=== PATIENT | male | born 1990 | race Caucasian/White ===

== ENCOUNTER 2021-08-26 10:57 | Outpatient (REF) | payer MEDICAID, SELFPAY ==
--- NOTE | ~2021-08-26 | XR_ITS ---
EXAMINATION: XR KNEE AP STANDING CLINICAL INFORMATION: Bilateral knee pain COMPARISON: None TECHNIQUE: AP bilateral standing view of the knees was obtained. Lateral views of each knee. FINDINGS: Bone mineralization appears normal. No joint space narrowing. No fracture. No joint effusion. XR/XR knee standing BI IMPRESSION: Normal knees.
== END 2021-08-26 10:58 | disposition home or self-care (01) ==
LOC: HO.HMGCX 10:57
PROVIDERS: PCP Internal Medicine; Visit Provider Internal Medicine
DX: M25.562 Pain in left knee (principal); M25.561 Pain in right knee
CPT/HCPCS: 73565

== ENCOUNTER 2022-08-18 06:57 | Outpatient (REF) | payer MEDICAID, SELFPAY ==
[2022-08-18 11:13] LABS: MANUAL DIFF FLAG NO
[2022-08-18 11:32] LABS: Basophils Percent Auto 0.4 % (0-2); Eosinophils Absolute Auto 0.1 X10*3/uL (0.0-0.4); Eosinophils Percent Auto 1.3 % (0-4); Hematocrit 46.7 % (42.0-52.0); Hemoglobin 15.8 g/dl (14.0-18.0); Imm Gran Abs Auto 0.09 X10*3/uL (0.00-0.03); Imm Gran Pct Auto 1.2 % (0.0-0.4); Lymphocytes Absolute Auto 2.3 X10*3/uL (1.2-4.9); Lymphocytes Percent Auto 30.9 % (20-40); Mean Corpuscular HGB Conc 33.8 g/dl (31.0-36.0); Mean Corpuscular Hemoglobin 29.2 pg (27.0-33.0); Mean Corpuscular Volume 86.3 fL (80.0-98.0); Monocytes Absolute Auto 0.6 X10*3/uL (0.1-1.2); Monocytes Percent Auto 7.6 % (2-11); Neutrophils Absolute Auto 4.4 x10*3/uL (2.0-8.3); Neutrophils Percent Auto 58.6 % (45-73); Platelet Count 245 X10*3/uL (160-400); Red Blood Count 5.41 X10*6/uL (4.60-5.80); Red Cell Distribution Width 12.8 % (11.0-16.0); White Blood Count 7.5 X10*3/uL (4.8-10.8)
[2022-08-18 12:51] LABS: Alanine Aminotransferase 22 U/L (0-40); Albumin Level 4.5 g/dL (3.5-5.0); Alkaline Phosphatase 70 U/L (39-117); Anion Gap 13 (12-20); Aspartate Amino Transferase 19 U/L (5-37); Bilirubin Direct 0.2 mg/dL (0.0-0.5); Bilirubin Total 0.6 mg/dL (0.0-1.0); Blood Urea Nitrogen 16 mg/dL (9-16); Carbon Dioxide 25 mmol/L (22-29); Chloride 105 mmol/L (96-108); Cholesterol 149 mg/dL; Estimated Glomerular Filt Rate > 60; Glucose Fasting 96 mg/dL (60-99); HDL Cholesterol 63 mg/dL; LDL Cholesterol Calculated 74 mg/dl; Potassium 4.2 mmol/L (3.3-5.1); Sodium 139 mmol/L (135-145); Triglycerides 64 mg/dL
== END 2022-08-18 06:58 | disposition home or self-care (01) ==
LOC: HO.HMGCLDS 06:57
PROVIDERS: PCP Internal Medicine; Visit Provider Internal Medicine
DX: Z00.00 Encounter for general adult medical examination without abnormal findings (principal); R53.83 Other fatigue; E78.5 Hyperlipidemia, unspecified
CPT/HCPCS: 36415; 80051; 80061; 80076; 82565; 82947; 84520; 85025

== ENCOUNTER 2023-08-17 08:07 | Outpatient (REF) | payer OTHER, SELFPAY ==
[2023-08-17 10:03] LABS: MANUAL DIFF FLAG NO
[2023-08-17 10:14] LABS: Basophils Percent Auto 0.3 % (0-2); Eosinophils Absolute Auto 0.1 X10*3/uL (0.0-0.4); Hematocrit 46.5 % (42.0-52.0); Hemoglobin 15.9 g/dl (14.0-18.0); Imm Gran Abs Auto 0.04 X10*3/uL (0.00-0.03); Imm Gran Pct Auto 0.6 % (0.0-0.4); Lymphocytes Absolute Auto 2.1 X10*3/uL (1.2-4.9); Lymphocytes Percent Auto 30.4 % (20-40); Mean Corpuscular HGB Conc 34.2 g/dl (31.0-36.0); Mean Corpuscular Hemoglobin 29.4 pg (27.0-33.0); Mean Platelet Volume 10.8 fL (9.4-12.4); Monocytes Absolute Auto 0.6 X10*3/uL (0.1-1.2); Monocytes Percent Auto 7.9 % (2-11); Neutrophils Absolute Auto 4.1 x10*3/uL (2.0-8.3); Neutrophils Percent Auto 59.8 % (45-73); Platelet Count 230 X10*3/uL (160-400); Red Blood Count 5.41 X10*6/uL (4.60-5.80); Red Cell Distribution Width 12.6 % (11.0-16.0); White Blood Count 6.9 X10*3/uL (4.8-10.8)
[2023-08-17 11:01] LABS: Alanine Aminotransferase 28 U/L (0-40); Albumin Level 4.8 g/dL (3.5-5.0); Alkaline Phosphatase 65 U/L (39-117); Anion Gap 11 (12-20); Aspartate Amino Transferase 25 U/L (5-37); Blood Urea Nitrogen 18 mg/dL (9-16); Calcium 9.6 mg/dL (8.4-10.2); Carbon Dioxide 27 mmol/L (22-29); Chloride 105 mmol/L (96-108); Cholesterol 143 mg/dL (<200); Estimated Glomerular Filt Rate > 60; Glucose Fasting 98 mg/dL (60-99); HDL Cholesterol 61 mg/dL (>40); LDL Cholesterol Calculated 74 mg/dL (<100); Potassium 4.3 mmol/L (3.3-5.1); Sodium 139 mmol/L (135-145); Total Protein 7.2 g/dL (6.5-8.0); Triglycerides 41 mg/dL (<150)
== END 2023-08-17 08:08 | disposition home or self-care (01) ==
LOC: HO.HMGCLDS 08:07
PROVIDERS: PCP Internal Medicine; Visit Provider Internal Medicine
DX: E78.5 Hyperlipidemia, unspecified (principal); R53.83 Other fatigue
CPT/HCPCS: 36415; 80053; 80061; 85025

== ENCOUNTER 2024-10-22 12:40 | Outpatient (AMB) | payer OTHER, SELFPAY ==
[2024-10-22 12:56] VITALS: BP 130/60; PULSE 74; RESP 18; TEMP 36.5; O2SAT 97; BMI 24.7
--- NOTE | 2024-10-22 12:56 | MHC.PC.OV ---
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 Hand Rounder Required: No Accompanied by: Self / Same As Patient Allergies No Known Allergies Allergy (Verified 10/22/24 13:18) Medication List - Last Reconciled 10/22/24 by CHITO Duffy trazodone 100 mg PO BEDTIME PRN Tobacco use date assessed: 10/22/24 Dental Screening Dental Screen Date: 10/22/24 Did you have a dental visit in the last 12 months?: Yes Did you have a dental problem in the last 6 months where you did not have access to dental care?: No Was dental information given to patient?: Patient has dentist HPI 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 Encouraged to see who takes his insurance and make an appointment. Snellen: Right: Left: Corrected vision: no STI screening: Colonoscopy:n/a Pap Smer:n/a Flu:stop taking this due to side effects, reports that he used to take this prior. COVID:x4 Tdap: 2020 Diet:regular Exercise: Lives an active lifestyle Previous PCP: Last visit: Awhile ago Last PE: Due Specialist: none OBGYN:n/a Past medical history: question cyst on the left side of buttocks, recurring, headaches migraines The patient is a 34-year-old male presenting for a physical examination and management of chronic conditions. 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 He experienced severe symptoms, including daily vomiting, which led to an endoscopy revealing significant esophageal damage. He was treated with proton pump inhibitors, initially Dexilant and later pantoprazole, and made lifestyle modifications such as using a wedge pillow and avoiding trigger foods. Despite improvement, he still experiences morning reflux and is considering a repeat endoscopy. The patient reports a history of anxiety and depression, which were more pronounced during his graduate studies. He is currently not on any antidepressants and feels better than during his academic years. Asthma was more severe during childhood but has become less bothersome with age. He has not used albuterol for a long time and reports no current symptoms. The patient has a history of migraines, which began in childhood. He has tried various interventions, including magnesium and B vitamins, and reports some improvement, though he still experiences debilitating episodes. He is considering trying sumatriptan for acute attacks. The patient describes a recurring issue with a lesion on his left buttock, initially drained and treated with antibiotics in [place]. The lesion occasionally swells and leaks, and he is considering further surgical evaluation. The lesion is suspected to be hidradenitis suppurativa. He reports recent diarrhea following a cold, with episodes occurring two to three times daily, accompanied by bloating. He plans to undergo a GI effects test to further investigate these symptoms. No recent travels or used of antibiotics. 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 1. Little interest or pleasure in doing things: not at all 2. Feeling down, depressed, or hopeless: not at all 3. Trouble falling or staying asleep, or sleeping too much: several days 4. Feeling tired or having little energy: several days 5. Poor appetite or overeating: not at all 6. Feeling bad about yourself - or that you are a failure or have let yourself or your family down: not at all 7. Trouble concentrating on things, such as reading the newspaper or watching television: not at all 8. Moving or speaking so slowly that other people could have noticed. Or the opposite - being so fidgety or restless that you have been moving around a lot more than usual: not at all 9. Thoughts that you would be better off or of hurting yourself in some way: not at all Total score: 2 Depression Screening Interpretation: Negative Depression Screening Done: Yes 19820 - PHQ-9 Billing: Yes Source: Developed by Drs. Holden Huitron, Viv Berry, Дмитрий Samuel and colleagues, with an educational nicole from [employer]. Thrive Questionnaire Date Thrive assessed: 10/22/24 I am a: Patient What is your living situation today?: I have a steady place to live Within the past 12 months, did the food you bought not last and you didn't have the money to get more?: Never true Within the past 12 months, did you worry whether your food would run out before you got money to buy more?: Never true Do you have trouble paying for medicines?: No Do you have trouble getting transportation to medical appointments?: No Do you have trouble paying your heating and electricity bill?: No Do you have trouble taking care of your child, family member or friend?: No Do you have trouble with day-to-day activities such as bathing, preparing meals, shopping, managing finances, etc.?: No Are you currently unemployed and looking for a job?: No Are you interested in more education?: No Please select the resources that you would like help with: None Currently or been in a relationship where the following occur: No concerns reported THRIVE Score: 0 AUDIT C Alcohol Use Questionnaire (AUDIT-C) 1. How often do you have a drink containing alcohol?: Monthly or less 2. How many drinks containing alcohol do you have on a typical day when you are drinking?: 1 or 2 3. How often do you have six or more drinks on one occasion?: Never Total Score: 1 ENID-7 AMB Questionnaire ENID-7 Date ENID - 7 assessed: 10/22/24 Feeling nervous, anxious, or on edge: 0 = Not at all Not being able to stop or control worryin = Not at all Worrying too much about different things: 0 = Not at all Trouble relaxin = Not at all Being so restless that it is hard to sit still: 0 = Not at all Becoming easily annoyed or irritable: 0 = Not at all Feeling afraid as if something awful might happen: 0 = Not at all Total ENID-7 score (0-4 normal; 5-9 mild; 10-14 moderate; 15-21 severe): 0 Source: Developed by Drs. Holden Huitron, Viv Berry, Дмитрий Samuel and colleagues, with an educational nicole from [employer]. ENID-7 Assessment Billing ENID-7 Assessment Tool: ENID-7 Assessment 74566 Review of Systems Const Reports difficulty sleeping and Reports headache(s) (Migraine) Eyes Denies loss of vision ENT Denies vertigo, Denies dizziness, Reports headache(s) (Migraine) and Denies sore throat Card Denies chest pain, Denies leg edema and Denies lightheadedness Resp Denies cough, Denies hemoptysis and Denies wheezing GI Denies abdominal pain, Denies melena, Reports bloating, Denies constipation, Reports heartburn, Reports diarrhea and Denies vomiting Denies dysuria, Denies urinary frequency and Denies urinary urgency Musc Denies arthralgias, Denies joint swelling, Denies numbness and Denies tingling Neuro Denies Abnormal speech present, Denies behavioral changes, Denies vertigo, Denies dizziness, Reports headache(s) (Migraine), Denies loss of vision, Denies memory loss, Denies numbness and Denies tingling Psych Denies anxiety, Denies behavioral changes, Denies depression, Denies memory loss and Denies panic attacks Brad/Lymph Denies easy bleeding and Denies easy bruising Aller/Immun Denies wheezing Physical exam (Primary Care) Vital Signs: Last Vital Signs Temp 97.7 F 10/22/24 12:56 Pulse 74 10/22/24 12:56 Resp 18 10/22/24 12:56 BP 130/60 10/22/24 12:56 Pulse Ox 97 10/22/24 12:56 Oxygen Delivery Method Room Air 10/22/24 12:56 BMI result Body Mass Index 24.7 Tobacco/Smoking Status: Tobacco use Status Tobacco use date assessed 10/22/24 10/22/24 13:13 Patient Tobacco Use Status Never used Tobacco 10/22/24 13:13 e-Cigarette/Vaping Use Never Used 10/22/24 13:13 PHQ-9: PHQ-9 Score PHQ-9: Total score 2 10/22/24 15:22 Depression Screening Interpretation: Negative Thrive Assessment: Date of Thrive Assessment Date Thrive assessed 10/22/24 10/22/24 13:13 Currently or been in a relationship where the following occur: No concerns reported Const General: healthy appearing, no acute distress, alert and awake Nutritional Appearance: well nourished Orientation/consciousness: oriented to person, oriented to place and oriented to time HENMT Ears: TM's normal bilaterally General nose exam: Normal nasal mucous membranes and turbinates present Eyes Conjunctivae: conjunctivae normal Sclerae: sclerae normal Pupils: Equal, round and reactive pupils present Neck Neck: Yes no lymphadenopathy and Yes no JVD Thyroid: Thyroid normal Carotids: no bruits Resp Effort & Inspection: normal respiratory effort and not tachypneic Auscultation: no crackles, no rales, no rhonchi and no wheezes Cardio Rate: regular rate Rhythm: regular rhythm Heart sounds: no murmurs and normal S1 and S2 GI Palpation (GI): Soft to palpation, nontender, no hepatomegaly and no splenomegaly Auscultation: normal bowel sounds Skin General skin exam: dry skin Rashes: rashes noted (left inner buttocks hidradenitis suppurativa) Neuro General: oriented to person, oriented to place and oriented to time Cranial nerves: Yes Equal, round and reactive pupils present Speech: No Abnormal speech present Gait exam (Neuro): Normal gait present Motor exam (neuro): no tremor noted Extrem Right upper extremity: full ROM Left upper extremity: full ROM Right lower extremity: full ROM; no edema Left lower extremity: full ROM; no edema Psych Mental Status: mental status grossly normal Speech and movement: Normal speech and movement present Affect: normal affect Attitude: cooperative Thought process: Normal thought process present Coding Level of Care Code New Pt Prev Care 18-39yr([id number] Diagnoses Annual physical exam Z00.00 Intractable migraine with status migrainosus, unspecified migraine type G43.911 Intractability: intractable Migraine type: unspecified Status migrainosus presence: with status migrainosus Hidradenitis suppurativa L73.2 Insomnia, unspecified type G47.00 Insomnia type: unspecified Diarrhea, unspecified type R19.7 Diarrhea type: unspecified type Gastroesophageal reflux disease with esophagitis, unspecified whether hemorrhage K21.00 Esophagitis bleeding: unspecified whether hemorrhage Additional Codes ENID-7 Assessment Billing - ENID-7 Assessment Tool: ENID-7 Assessment 99677 ([id number]) PHQ-9 - 79371 - PHQ-9 Billing: Yes ([id number]) Time Spent (min) 38 Assessment & Plan Assessment & Plan (1) Annual physical exam: Code(s): Z00.00 - Encounter for general adult medical examination without abnormal findings Category: Medical Plan: The patient is a 34-year-old male here to establish care and to obtain physical exam. Preventative guidelines was reviewed with the patient. Labs were ordered for the patient to complete as soon as possible for further evaluation. (2) Migraines: Code(s): G43.909 - Migraine, unspecified, not intractable, without status migrainosus Category: Medical Qualifiers: Intractability: intractable Migraine type: unspecified Status migrainosus presence: with status migrainosus Qualified Code(s): G43.911 - Migraine, unspecified, intractable, with status migrainosus Plan: Patient reports history of debilitating migraine. Reports photophobia and phonophobia. He has been taking B complex vitamin and magnesium OTC, he has improved this water intake, but continues to have recurrent debilitating headaches. We will order sumatriptan 50 mg p.r.n. for severe headaches and refer the patient to Neurology for further workup. (3) Hidradenitis suppurativa: Code(s): L73.2 - Hidradenitis suppurativa Category: Medical Plan: Patient has a recurrent cyst like lesion to the left buttocks that has been drained and treated with antibiotics in the past. It is raised lump with small amount of purulent drainage. Doxycycline 100 mg b.i.d. times 10 days ordered. Patient was worn about possible diarrhea/GI upset. The patient is already having 1-3 loose stools day depending on meals and will continue to stay hydrated. We will also refer the patient to General surgery for possible I & D. (4) Insomnia: Code(s): G47.00 - Insomnia, unspecified Category: Medical Qualifiers: Insomnia type: unspecified Qualified Code(s): G47.00 - Insomnia, unspecified Plan: Reinforced sleep hygiene Continue trazodone 100 mg b.i.d. p.r.n. (5) Diarrhea: Code(s): R19.7 - Diarrhea, unspecified Category: Medical Qualifiers: Diarrhea type: unspecified type Qualified Code(s): R19.7 - Diarrhea, unspecified Plan: The patient reports that this started a week after having a cold sx and has not stopped He is having 1-3 loose stools a day, he is also complaining off bloatedness an overall stomach discomfort but not pain Transglutaminase, lipase, amylase, stool leukocytes, and ova and parasite ordered to further evaluate Patient also has history of GERD that has started to resurface. We will refer the patient to GI and restart pantoprazole (6) GERD with esophagitis: Code(s): K21.00 - Gastro-esophageal reflux disease with esophagitis, without bleeding Category: Medical Qualifiers: Esophagitis bleeding: unspecified whether hemorrhage Qualified Code(s): K21.00 - Gastro-esophageal reflux disease with esophagitis, without bleeding Plan: History of severe GERD that had resolved with dietary changes and medication. He has not taken any medication in a while. We will restart the patient on pantoprazole 40 mg daily and put and a GI referral for further evaluation Orders: Orders Complete Blood Count Auto Diff Today Z00.00 - Encounter for general adult medical examination without abnormal findings Comprehensive [place]. Panel Fast Today Z00.00 - Encounter for general adult medical examination without abnormal findings Lipid Panel Today Z00.00 - Encounter for general adult medical examination without abnormal findings TSH reflex Free T4 Today Z00.00 - Encounter for general adult medical examination without abnormal findings Vitamin D 25-OH Total Today Z00.00 - Encounter for general adult medical examination without abnormal findings Transglutaminase Ab IgG Today Z00.00 - Encounter for general adult medical examination without abnormal findings Leukocytes Stool Qualitative Today R19.7 - Diarrhea, unspecified UA CC w/rflx Micro + Cult Today Z00.00 - Encounter for general adult medical examination without abnormal findings Ova and Parasite Today R19.7 - Diarrhea, unspecified Referrals Gastroenterology Referral K21.00 - Gastro-esophageal reflux disease with esophagitis, without bleeding, R19.7 - Diarrhea, unspecified Neurology Referral G43.911 - Migraine, unspecified, intractable, with status migrainosus General Surgery Referral L73.2 - Hidradenitis suppurativa Medications: New sumatriptan succinate take 1 tab at onset of headache; if no relief may repeat 1 tab after at least 2 hrs; max = 4 tabs/24 hr PO 14 tabs 3RF doxycycline hyclate 100 mg PO BID 20 caps 0RF 10 days pantoprazole 40 mg PO DAILY 90 tabs 3RF
--- OUTSIDE RECORDS SUMMARY | 2024-10-22 17:23 | XMS_ITS | Encounter Summary ---
Author Organization [facility] Address [address] [place] [address] Phone Care Team Providers Care Painter Name Role Phone Álvaro Reynoso MD Primary Care Provider [phone] Encounter Details Date Type Department Care Team (Late st Contact Info) Description 11/30/2010 Documentation EM Family Medicine [address] [place] [address] Family Medicine, Physician [address] [place], [place] [phone] Social History Tobacco Use Types Packs/Day Years Used Date Smoking Tobacco: Never Assessed Sex and Gender Information Value Date Recorded Sex Assigned at Not on file Legal Sex Male 4:39 PM EDT Gender Identity Not on file Sexual Orientation Not on file documented as of this encounter Plan of Treatment Not on file documented as of this encounter Visit Diagnoses Not on filedocumented in this encounter Care Teams Painter Relationship Specialty Start Date End Date Álvaro Reynoso MD [address] [place] [address] WENDY Juarez [id number] PCP - General 09/17/16 03/24/22 documented as of this encounter
--- OUTSIDE RECORDS SUMMARY | 2024-10-22 17:23 | XMS_ITS | Encounter Summary ---
Author Organization [facility] Address [address] [place] [address] Phone Care Team Providers Care Nurses Director Name Role Phone Álvaro Reynoso MD Primary Care Provider Encounter Details Date Type Department Care Team (Late st Contact Info) Description 12/01/2010 Documentation EM Family Medicine [address] [place] [address] Family Medicine, Physician [address] [place], [place] [phone] Social History Tobacco Use Types Packs/Day Years [...] on filedocumented in this encounter Care Teams Nurses Director Relationship Specialty Start Date End Date Álvaro Reynoso MD [address] [place] [address] WENDY Juarez [address] PCP - General 09/17/16 03/24/22 documented as of this encounter
--- OUTSIDE RECORDS SUMMARY | 2024-10-22 17:23 | XMS_ITS | Encounter Summary ---
Author Organization [facility] Address [address] [place] [address] Phone Care Team Providers Care Creative Consultant Name Role Phone Álvaro Reynoso MD Primary Care Provider [phone] Encounter Details Date Type Department Care Team (Late st Contact Info) Description 02/26/2011 Documentation EM Family Medicine [address] [place] [address] Family Medicine, Physician [address] [place], [place] [phone] Social History Tobacco Use Types Packs/Day Years [...] on filedocumented in this encounter Care Teams Creative Consultant Relationship Specialty Start Date End Date Álvaro Reynoso MD [address] [place] [address] WENDY Juarez [address] PCP - General 09/17/16 03/24/22 documented as of this encounter
--- OUTSIDE RECORDS SUMMARY | 2024-10-22 17:23 | XMS_ITS | Encounter Summary ---
Author Organization [facility] Address [address] [place] [address] Phone Care Team Providers Care Wheel Setter Name Role Phone Álvaro Reynoso MD Primary Care Provider [phone] Encounter Details Date Type Department Care Team (Late st Contact Info) Description 12/03/2010 Documentation EM Family Medicine [address] [place] [address] Family Medicine, Physician [address] [place], [place] [phone] Social History Tobacco Use Types Packs/Day Years [...] on filedocumented in this encounter Care Teams Wheel Setter Relationship Specialty Start Date End Date Álvaro Reynoso MD [address] [place] [address] WENDY Juarez [address] PCP - General 09/17/16 03/24/22 documented as of this encounter
--- OUTSIDE RECORDS SUMMARY | 2024-10-22 17:23 | XMS_ITS | Encounter Summary ---
Author Organization [facility] Address [address] [place] [address] Phone Care Team Providers Care Quill Buncher And Sorter Name Role Phone Álvaro Reynoso MD Primary Care Provider [phone] Encounter Details Date Type Department Care Team (Late st Contact Info) Description 09/23/2016 Conversion Encounter [facility] [place] [address] [place] [address] Social History Tobacco Use Types Packs/Day Years [...] on filedocumented in this encounter Care Teams Quill Buncher And Sorter Relationship Specialty Start Date End Date Álvaro Reynoso MD [address] [place] [address] PCP - General 09/17/16 03/24/22 documented as of this encounter
--- OUTSIDE RECORDS SUMMARY | 2024-10-22 17:23 | XMS_ITS | Encounter Summary ---
Author Organization [facility] Address [address] [place] [address] Phone Care Team Providers Care Lead Clinical Research Coordinator Name Role Phone Álvaro Reynoso MD Primary Care Provider [phone] Encounter Details Date Type Department Care Team (Late st Contact Info) Description 05/06/2011 Documentation EM Family Medicine [address] [place] [address] Family Medicine, Physician [address] [place], [place] [phone] Social History Tobacco Use Types Packs/Day Years [...] on filedocumented in this encounter Care Teams Lead Clinical Research Coordinator Relationship Specialty Start Date End Date Álvaro Reynoso MD [address] [place] [address] WENDY Juarez [address] PCP - General 09/17/16 03/24/22 documented as of this encounter
--- OUTSIDE RECORDS SUMMARY | 2024-10-22 17:23 | XMS_ITS | Clinical Summary ---
Author Organization [facility] Address [address] [place] [address] Phone Care Team Providers Care Social Sciences Research Scientist Name Role Phone Unavailable Primary Care Provider Unavailabl e Immunizations Immunization Administration Dates Next Due DTP 12/07/1994, 5,06/06/1990,04/06,01/06/1990 H1N1 12/11/2008 Hep B, ped/adol 04/17/2001,11/15/2000,10/14/2000 Hib (PRP-T) 03/09/1991 IPV 12/07/1994, 5,04/06/1990,01/06 Influenza Split 11/30/2010 Influenza, injectable, trivalent 009,03/12/2008,11/21/2003,12/18 MMR 04/06/1994,03/09/1991 Meningococcal Conj (Menactra) MCV4P 09/06/2006 Td (adult) (MBL), 2 Lf tetan us toxoid, PF, adsorbed 10/14/2000 Tdap 09/06/2006 Family History Relation Name Status Comments Brother 1 Alive Brother: Alive and well, Alive and well Brother 2 Alive Brother: Alive and well, Alive and well Father Father: trauma, Mother Mother: unknown , unknown, unknown Other 1 Alive Grandmother: Al riya and well Other 2 Family history of Asthma, Family history of Obesity, Family history of Migraines Social History Tobacco Use Types Packs/Day Years Used Date Smoking Tobacco: Never Assessed Sex and Gender Information Value Date Recorded Sex Assigned at Not on file Legal Sex Male 4:39 PM EDT Gender Identity Not on file Sexual Orientation Not on file Last Filed Vital Signs Vital Sign Reading Time Taken Comments Blood Pressure 118/66 02/25/2011 12:00 AM EST Pulse 72 11/30/2010 12:00 AM EDT Temperature 36.7 C (98 F) 05/04/2011 12:00 AM EDT Respiratory Rate - - Oxygen Saturation - - Inhaled Oxygen Concentration - - Weight 71.2 kg (157 lb) 05/04/2011 12:00 AM EDT Height - - Body Mass Index - - Plan of Treatment Health Maintenance Due Date Last Done Comments Varicella Vaccines (1 of 2 - 13+ 2-dose series) 2002 HPV Vaccines (1 - 3-dose SCDM series) 2016 DTaP,Tdap,and Td Vaccines (7 - Td or Tdap) 09/06/2016 09/06/2006, 10/14/2000, 12/07/1994, Additional history exists Influenza Vaccines (#1) 2024 12/01/19, 10/22/2008, 03/12/2008, Additional history exists COVID-19 Vaccine ( season) 2024 HIB Vaccines Completed 03/09/1991 MMR Vaccines Completed 04/06/1994, 03/09/1991 IPV Vaccines Completed 12/07/1994, 03/11, 04/06/1990, Additional history exists Hepatitis B Vaccines Completed 04/17/2001, 11/15/2000, 10/14/2000 Meningococcal Vaccine Completed 09/06/2006 Hepatitis A Vaccines Aged Out No long er eligible based on patient's age to complete this topic Men B Vaccine Aged Out No longer elig ible based on patient's age to complete this topic Pneumococcal Vaccine Aged Out No long er eligible based on patient's age to complete this topic
--- OUTSIDE RECORDS SUMMARY | 2024-10-22 17:23 | XMS_ITS | Encounter Summary ---
Author Organization [facility] Address [address] [place] [address] Phone Care Team Providers Care City Councilman Name Role Phone Álvaro Reynoso MD Primary Care Provider [phone] Encounter Details Date Type Department Care Team (Late st Contact Info) Description 07/10/2013 Documentation EM Family Medicine [address] [place] [address] Family Medicine, Physician [address] [place], [place] [id number] Social History Tobacco Use Types Packs/Day Years [...] on filedocumented in this encounter Care Teams City Councilman Relationship Specialty Start Date End Date Álvaro Reynoso MD [address] [place] [address] WENDY Juarez [address] PCP - General 09/17/16 03/24/22 documented as of this encounter
== END 2024-10-22 13:57 | disposition home or self-care (01) ==
LOC: HO.HMCH 12:41
PROVIDERS: PCP Internal Medicine
DX: Z00.00 Encounter for general adult medical examination without abnormal findings (principal); G43.911 Migraine, unspecified, intractable, with status migrainosus; L73.2 Hidradenitis suppurativa; G47.00 Insomnia, unspecified; R19.7 Diarrhea, unspecified; K21.00 Gastro-esophageal reflux disease with esophagitis, without bleeding

== ENCOUNTER → 2024-10-22 12:40 | Outpatient (BNVA) | payer OTHER, SELFPAY | PROVIDERS: PCP Internal Medicine | DX: Z00.00 Encounter for general adult medical examination without abnormal findings (principal); K21.9 Gastro-esophageal reflux disease without esophagitis; F41.9 Anxiety disorder, unspecified; F32.A Depression, unspecified; G43.909 Migraine, unspecified, not intractable, without status migrainosus; R19.7 Diarrhea, unspecified; G43.911 Migraine, unspecified, intractable, with status migrainosus; L73.2 Hidradenitis suppurativa; G47.00 Insomnia, unspecified; K21.00 Gastro-esophageal reflux disease with esophagitis, without bleeding | CPT/HCPCS: 96127; 99385 ==

== ENCOUNTER 2024-11-15 07:36 | Outpatient (REF) | payer OTHER, SELFPAY ==
[2024-11-15 10:05] LABS: MANUAL DIFF FLAG NO
[2024-11-15 10:09] LABS: Hematocrit 45.5 % (42.0-52.0); Hemoglobin 15.6 g/dl (14.0-18.0); Imm Gran Abs Auto 0.03 X10*3/uL (0.00-0.03); Imm Gran Pct Auto 0.5 % (0.0-0.4); Lymphocytes Absolute Auto 1.7 X10*3/uL (1.2-4.9); Mean Corpuscular HGB Conc 34.3 g/dl (31.0-36.0); Mean Corpuscular Hemoglobin 29.2 pg (27.0-33.0); Mean Corpuscular Volume 85.2 fL (80.0-98.0); NRBC Abs Auto 0.000 X10*3/uL (0.0-0.012); NRBC Pct Auto 0.0 /100WBC (0.0-0.2); Platelet Count 198 X10*3/uL (160-400); Red Blood Count 5.34 X10*6/uL (4.60-5.80); White Blood Count 6.0 X10*3/uL (4.8-10.8)
[2024-11-15 10:37] LABS: Alanine Aminotransferase 26 U/L (0-40); Albumin Level 4.9 g/dL (3.5-5.0); Alkaline Phosphatase 66 U/L (39-117); Anion Gap 11 (12-20); Aspartate Amino Transferase 28 U/L (5-37); Blood Urea Nitrogen 18 mg/dL (9-16); Calcium 9.4 mg/dL (8.4-10.2); Carbon Dioxide 27 mmol/L (22-29); Chloride 108 mmol/L (96-108); Cholesterol 135 mg/dL (<200); Estimated Glomerular Filt Rate > 60; HDL Cholesterol 54 mg/dL (>40); Potassium 4.8 mmol/L (3.3-5.1); Sodium 141 mmol/L (135-145); Total Protein 6.9 g/dL (6.5-8.0); Triglycerides 44 mg/dL (<150)
[2024-11-20 22:22] LABS: Transglutaminase Ab IgG <1.0 U/mL
== END 2024-11-15 07:37 | disposition home or self-care (01) ==
LOC: HO.HMGCLDS 07:36
DX: Z00.00 Encounter for general adult medical examination without abnormal findings (principal); Z01.84 Encounter for antibody response examination
CPT/HCPCS: 36415; 80053; 80061; 82306; 84443; 85025; 86364

== ENCOUNTER 2024-12-04 15:09 | Outpatient (AMB) | payer OTHER, SELFPAY ==
--- NOTE | 2024-12-04 15:13 | MHC.OFFVIS ---
Intake Visit Reasons: HS, Left buttock, inner aspect Intake Note: Patient is seen in office for evaluation of a left buttock cyst. Pt c/o: been with this issue since 2020 at the time was I&D, happens 2 to 3 times a year has not been I&D does times, currently is not inflammed or irritated, last time it happend was 1 1/2 months ago, it did discharge, denies fever chills Telecommunications Technician Required: No Accompanied by: Self / Same As Patient Allergies No Known Allergies Allergy (Verified 10/22/24 13:18) Medication List - Last Reconciled 12/04/24 by Robert Baker MD pantoprazole 40 mg PO DAILY sumatriptan succinate take 1 tab at onset of headache; if no relief may repeat 1 tab after at least 2 hrs; max = 4 tabs/24 hr PO trazodone 100 mg PO BEDTIME PRN HPI Comments Details: 34-year-old male patient presenting with previous history of a perianal abscess. This has began in 2020 after taking a long walk which resulted in severe inflammation and pain in the left buttock while in [place]. He was evaluated and subsequently underwent incision and drainage of a left buttock abscess. The site was subsequently examined with peroxide to identify a possible perirectal fistula however no fistula was identified. The wound subsequently healed however he now occasionally will have a small amount of discharge from the same site. This may drain for day or 2 and then completely heal once again. He denies any significant pain, fever or chills. His bowels are normal without diarrhea or constipation. He denies any blood per rectum. 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 Cognitive needs: No Hearing needs: No Vision needs: No Review of Systems Const All systems reviewed & are unremarkable except as noted in HPI and below Physical Exam Const General: cooperative and no acute distress Nutritional Appearance: well nourished Orientation/consciousness: patient oriented x3 Limitations: no limitations HEENT Head: Yes normocephalic and Yes atraumatic Ears: hearing grossly normal bilaterally Resp Effort & Inspection: normal respiratory effort, no audible wheezes, no cough and no respiratory distress Cardio Jugular venous distension: no JVD GI Inspection: Yes normal to inspection Back/Spine/Pelvis Back/spine/pelvis image:  1. Perianal incision identified lateral to the anal opening. This incision is well healed with no evidence of fluctuance and no evidence of a perianal fistula tract. No external tags, or external hemorrhoids are identified. Skin Other: Warm, dry, no rash Neuro General: patient oriented x3 Extrem General: Yes no clubbing, cyanosis or edema Assessment & Plan Assessment & Plan (1) Perianal cyst: Code(s): K62.89 - Other specified diseases of anus and rectum Category: Medical Plan 34-year-old male patient with a prior history of a perirectal abscess which required incision and drainage in 2000. Examination at that time was negative for a perirectal fistula. He does occasionally have a small amount of discharge from the site but currently he is noted to have completely healed wound with no cystic collection, abscess, or evidence of ongoing inflammation. No fistulous tract could be identified as well. There is no tenderness to palpation as well. While certainly this incision and drainage site can be widely excised to prevent any further infection, there currently is no indication of any active disease at this time. I have recommended continued observation but encouraged him to call should any new symptoms develop. He expressed understanding and agrees with the plan. Coding Level of Care Code New Pt Level 4 (72462) Diagnoses Perianal cyst K62.89
--- OUTSIDE RECORDS SUMMARY | 2024-12-04 19:35 | XMS_ITS | Encounter Summary ---
Author Organization [facility] Address [address] [place] [address] Phone Care Team Providers Care Carpet Installer Helper Name Role Phone Álvaro Reynoso MD Primary Care Provider [phone] Encounter Details Date Type Department Care Team (Late st Contact Info) Description 02/26/2011 Documentation EM Family Medicine [address] [place] [address] Family Medicine, Physician [address] [place], [place] [phone] Social History Tobacco Use Types Packs/Day Years [...] on filedocumented in this encounter Care Teams Carpet Installer Helper Relationship Specialty Start Date End Date Álvaro Reynoso MD [address] [place] [address] WENDY Juarez [address] PCP - General 09/17/16 03/24/22 documented as of this encounter
--- OUTSIDE RECORDS SUMMARY | 2024-12-04 19:35 | XMS_ITS | Encounter Summary ---
Author Organization [facility] Address [address] [place] [address] Phone Care Team Providers Care Market Development Director Name Role Phone Álvaro Reynoso MD Primary Care Provider [phone] Encounter Details Date Type Department Care Team (Late st Contact Info) Description 05/06/2011 Documentation EM Family Medicine [address] [place] [address] Family Medicine, Physician [address] [place], [place] [phone] Social History Tobacco Use Types Packs/Day Years [...] on filedocumented in this encounter Care Teams Market Development Director Relationship Specialty Start Date End Date Álvaro Reynoso MD [address] [place] [address] WENDY Juarez [address] PCP - General 09/17/16 03/24/22 documented as of this encounter
--- OUTSIDE RECORDS SUMMARY | 2024-12-04 19:35 | XMS_ITS | Encounter Summary ---
Author Organization [facility] Address [address] [place] [address] Phone Care Team Providers Care Hot Metal Charger Name Role Phone Álvaro Reynoso MD Primary Care Provider [phone] Encounter Details Date Type Department Care Team (Late st Contact Info) Description 12/03/2010 Documentation EM Family Medicine [address] [place] [address] Family Medicine, Physician [address] [place], [place] [phone] Social History Tobacco Use Types Packs/Day Years [...] on filedocumented in this encounter Care Teams Hot Metal Charger Relationship Specialty Start Date End Date Álvaro Reynoso MD [address] [place] [address] WENDY Juarez [address] PCP - General 09/17/16 03/24/22 documented as of this encounter
--- OUTSIDE RECORDS SUMMARY | 2024-12-04 19:35 | XMS_ITS | Encounter Summary ---
Author Organization [facility] Address [address] [place] [address] Phone Care Team Providers Care Photographer Motion Picture Name Role Phone Álvaro Reynoso MD Primary Care Provider [phone] Encounter Details Date Type Department Care Team (Late st Contact Info) Description 07/10/2013 Documentation EM Family Medicine [address] [place] [address] Family Medicine, Physician [address] [place], [place] [phone] Social History Tobacco Use Types Packs/Day Years [...] on filedocumented in this encounter Care Teams Photographer Motion Picture Relationship Specialty Start Date End Date Álvaro Reynoso MD [address] [place] [address] WENDY Juarez [address] PCP - General 09/17/16 03/24/22 documented as of this encounter
--- OUTSIDE RECORDS SUMMARY | 2024-12-04 19:35 | XMS_ITS | Encounter Summary ---
Author Organization [facility] Address [address] [place] [address] Phone Care Team Providers Care Sap Business Objects Consultant Name Role Phone Álvaro Reynoso MD Primary Care Provider [phone] Encounter Details Date Type Department Care Team (Late st Contact Info) Description 11/30/2010 Documentation EM Family Medicine [address] [place] [address] Family Medicine, Physician [address] [place], [place] [phone] Social History Tobacco Use Types Packs/Day Years [...] on filedocumented in this encounter Care Teams Sap Business Objects Consultant Relationship Specialty Start Date End Date Álvaro Reynoso MD [address] [place] [address] WENDY Juarez [address] PCP - General 09/17/16 03/24/22 documented as of this encounter
--- OUTSIDE RECORDS SUMMARY | 2024-12-04 19:35 | XMS_ITS | Encounter Summary ---
Author Organization [facility] Address [address] [place] [address] Phone Care Team Providers Care Driver License Examiner Name Role Phone Álvaro Reynoso MD Primary Care Provider [phone] Encounter Details Date Type Department Care Team (Late st Contact Info) Description 09/23/2016 Conversion Encounter [facility] [place] [address] [place] [address] Social History Tobacco Use Types Packs/Day Years [...] on filedocumented in this encounter Care Teams Driver License Examiner Relationship Specialty Start Date End Date Álvaro Reynoso MD [address] [place] [address] PCP - General 09/17/16 03/24/22 documented as of this encounter
--- OUTSIDE RECORDS SUMMARY | 2024-12-04 19:35 | XMS_ITS | Encounter Summary ---
Author Organization [facility] Address [address] [place] [address] Phone Care Team Providers Care Smoking Tobacco Packing Machine Hand Name Role Phone Álvaro Reynoso MD Primary Care Provider [phone] Encounter Details Date Type Department Care Team (Late st Contact Info) Description 12/01/2010 Documentation EM Family Medicine [address] [place] [address] Family Medicine, Physician [address] [place], [place] [phone] Social History Tobacco Use Types Packs/Day Years [...] on filedocumented in this encounter Care Teams Smoking Tobacco Packing Machine Hand Relationship Specialty Start Date End Date Álvaro Reynoso MD [address] [place] [address] WENDY Juarez [address] PCP - General 09/17/16 03/24/22 documented as of this encounter
--- OUTSIDE RECORDS SUMMARY | 2024-12-04 19:36 | XMS_ITS | Clinical Summary ---
Author Organization [facility] Address [address] [place] [address] Phone Care Team Providers Care Survey Rodman Name Role Phone Unavailable Primary Care Provider [...]
== END 2024-12-04 15:35 | disposition home or self-care (01) ==
LOC: HO.HGS 15:10
PROVIDERS: PCP Internal Medicine; Visit Provider Surgery
DX: K62.89 Other specified diseases of anus and rectum (principal)
CPT/HCPCS: 99204

== ENCOUNTER → 2024-12-04 15:09 | Outpatient (BNVA) | payer OTHER, SELFPAY | PROVIDERS: PCP Internal Medicine; Visit Provider Surgery | DX: K62.89 Other specified diseases of anus and rectum (principal) | CPT/HCPCS: 99202 ==